=== PATIENT | female | born 1985 | race Caucasian/White ===

== ENCOUNTER 2017-08-06 10:57 | Emergency (ER) | END 2017-08-06 13:59 | disposition home or self-care (01) ==

== ENCOUNTER 2017-08-13 16:29 | Emergency (ER) | END 2017-08-13 19:25 | disposition home or self-care (01) ==

== ENCOUNTER 2018-08-18 12:15 | Emergency (ER) | payer MEDICAID ==
[~2018-08-18] VITALS: Ht 162.6 cm; Wt 78.2 kg
[~2018-08-18 12:15] MED LIST: CEPH-443 PO; HYDR25TA6 PO; IBUP-1561 PO; ONDA4TAB14 PO; PREN1TAB49
[2018-08-18 12:23] VITALS: Ht 162.6 cm; Wt 78.2 kg
--- NOTE | 2018-08-18 15:02 | ERD ---
ER Documentation Chief Complaint Chief Complaint DIZZINESS AND NUMBESS OF THE ARMS X 1 WEEK HPI 83-year-old female, previously healthy, presents the emergency department, complaining of 1 week with intermittent episodes of dizziness, described as a spinning sensation, worsened by changes in position, associated with nausea and bilateral ear ringing. The patient reports approximately one episode per day, she denies headache, no blurred vision, no distal weakness, however, the patient reports numbness of the fingers. Otherwise, no fever, no chills, no rashes, no abdominal pain. ROS All systems reviewed and are negative except as per history of present illness. Medications Home Meds Active Scripts Ondansetron Hcl* (Zofran*) 4 Mg Tablet, 4 MG PO Q8H PRN for NAUSEA AND/OR VOMITING, #20 TAB Prov:KARINA PUENTE MD 08/18/18 Meclizine Hcl* (Antivert*) 12.5 Mg Tab, 12.5 MG PO Q6H PRN for DIZZINESS, #20 TAB Prov:KARINA PUENTE MD 08/18/18 Ondansetron (Ondansetron Odt) 4 Mg Tab.rapdis, 4 MG PO Q6H PRN for NAUSEA AND/OR VOMITING, #20 TAB Prov:NEVILLE HOU PA-C 08/13/17 Ibuprofen* (Motrin*) 400 Mg Tab, 400 MG PO Q6H PRN for PAIN AND OR ELEVATED TEMP, #30 TAB Prov:NEVILLE HOU PA-C 08/13/17 Cephalexin* (Keflex*) 500 Mg Capsule, 500 MG PO TID for 7 Days, CAP Prov:NEVILLE HOU PA-C 08/13/17 Hydrochlorothiazide* (Hydrochlorothiazide*) 25 Mg Tab, 25 MG PO DAILY, #30 TAB Prov:FERNANDEZ CHRISTIAN PA-C 08/06/17 Reported Medications Vits W-Ca,Fe,Fa(<1MG) () 1 Tab Tablet, DAILY 04/12/11 Allergies Allergies: Coded Allergies: No Known Allergy (Verified Allergy, Mild, 05/25/06) PMhx/Soc History of Surgery: No Hx Neurological Disorder: No Hx Respiratory Disorders: No Hx Cardiac Disorders: Yes (htn) Hx Psychiatric Problems: No Hx Miscellaneous Medical Probl: No Hx Alcohol Use: No Hx Substance Use: No Hx Tobacco Use: No FmHx Family History: diabetes; No coronary disease Physical Exam Vitals Vital Signs Date Temp Pulse Resp B/P (MAP) Pulse Ox O2 O2 Flow FiO2 Time Delivery Rate 08/18/18 98.4 89 20 129/78 99 Room Air 16:38 (95) 08/18/18 98.9 100 20 146/91 99 12:23 (109) Physical Exam Patient is in no acute distress, vital signs stable. Alert and fully oriented. HEENT: PERRLA, EOMI, Sclera and conjunctiva appear normal, Canals clear, tympanic membranes WNL. THROAT: Normal oropharynx. NECK: Supple, No lymphadenopathy. Full ROM without pain or tenderness. HEART: RRR, no rubs, murmurs, clicks or gallops. LUNGS: Clear to auscultation. ABDOMEN: Soft, non-tender without masses or hepatosplenomegaly. EXTREMITIES: No edema bilaterally. BACK: Full ROM, no deformity, normal back exam NEURO: Cranial nerves grossly intact, no motor or sensory deficit. Mild horizontal nystagmus while the patient was looking straight ahead with mildly abnormal head impulse test. Result Diagram: 08/18/18 1519 08/18/18 1519 Results 24 hrs Laboratory Tests Test 08/18/18 15:19 08/18/18 15:23 White Blood Count 11.8 10^3/ul Red Blood Count 5.11 10^6/ul Hemoglobin 15.4 g/dl Hematocrit 45.4 % Mean Corpuscular Volume 88.8 fl Mean Corpuscular Hemoglobin 30.1 pg Mean Corpuscular Hemoglobin Concent 33.9 g/dl Red Cell Distribution Width 12.1 % Platelet Count 257 10^3/UL Mean Platelet Volume 12.1 fl Immature Granulocytes % 0.300 % Neutrophils % 67.2 % Lymphocytes % 24.7 % Monocytes % 7.0 % Eosinophils % 0.5 % Basophils % 0.3 % Nucleated Red Blood Cells % 0.0 /100WBC Immature Granulocytes # 0.030 10^3/ul Neutrophils # 7.9 10^3/ul Lymphocytes # 2.9 10^3/ul Monocytes # 0.8 10^3/ul Eosinophils # 0.1 10^3/ul Basophils # 0.0 10^3/ul Nucleated Red Blood Cells # 0.0 10^3/ul Sodium Level 139 mmol/L Potassium Level 3.8 mmol/L Chloride Level 100 mmol/L Carbon Dioxide Level 26 mmol/L Anion Gap 13 Blood Urea Nitrogen 9 mg/dl Creatinine 0.58 mg/dl Est Glomerular Filtrat Rate mL/min > 60 mL/min Glucose Level 81 mg/dl Calcium Level 10.3 mg/dl Total Bilirubin 0.9 mg/dl Direct Bilirubin 0.00 mg/dl Indirect Bilirubin 0.9 mg/dl Aspartate Amino Transf (AST/SGOT) 24 IU/L Alanine Aminotransferase (ALT/SGPT) 34 IU/L Alkaline Phosphatase 86 IU/L Total Protein 8.7 g/dl Albumin 5.0 g/dl Globulin 3.70 g/dl Albumin/Globulin Ratio 1.35 Urine Color STRAW Urine Clarity SLIGHTLY CLOUDY Urine pH 8.0 Urine Specific [place] 1.003 Urine Ketones 1+ mg/dL Urine Nitrite NEGATIVE mg/dL Urine Bilirubin NEGATIVE mg/dL Urine Urobilinogen NEGATIVE mg/dL Urine Leukocyte Esterase NEGATIVE Amanda/ul Urine Microscopic RBC 5 /HPF Urine Microscopic WBC 1 /HPF Urine Squamous Epithelial Cells FEW /HPF Urine Bacteria FEW /HPF Urine Hemoglobin 1+ mg/dL Urine Glucose NEGATIVE mg/dL Urine Total Protein NEGATIVE mg/dl EKG read by me: Rate/Rhythm: Regular rate and rhythm at a rate of 103 Intervals: Normal No acute ST changes. No T wave inversion Impression: No evidence of acute ischemia or arrhythmia Patient: MEL VILLAVICENCIO : 1985 Age: 33 Sex: F [id number] DOS: 08/18/18 [facility]9 Ordering MD: KARINA PUENTE MD Location: [facility] Room/Bed: PROCEDURE: CT Brain without contrast. CLINICAL INDICATION: Dizziness, paresthesia. TECHNIQUE: A CT of the brain without contrast was performed utilizing axial sections from the skull base through the vertex. One or more the following does reduction techniques were utilized: Automated exposure control, adjustment of the mA/ or kV according to patient's size, or use of iterative reconstruction technique. Total exam CTDIvol is 40 MGy and DLP is 634 mGy-cm. DICOM images are available. COMPARISON: None available. FINDINGS: The ventricles and sulci are age-appropriate. There is no intracranial hemorrhage, mass effect or midline shift. No abnormal intra-axial or extra- axial fluid collections are seen. The nelson/white matter differentiation is preserved. No acute skull abnormality is noted. The visualized paranasal sinuses demonstrate minimal mucoid secretion in the left sphenoid sinus. The mastoid air cells are essentially clear. IMPRESSION: 1. No acute intracranial hemorrhage, transcortical infarction or mass effect. RPTAT: UU Procedures/MDM Vital signs stable, neurovascular exam revealed horizontal nystagmus while the patient was looking straight ahead with mildly abnormal head impulse test. Differential diagnosis include but not limited to dehydration, cardiac arrhythmia, , Mnire's disease, vestibular neuronitis, migraine, vertigo, side effects of the medications, hypoglycemia. Less likely but is still a possibility, intracranial hemorrhage, ischemic stroke, [employer] neoplasm. Pertinent Data: 12 Lead ECG: Sinus rhythm, no ST changes, normal T wave, normal intervals Labs: CBC: normal, BMP: normal kidney function, normal electrolytes. Glucose: normal Urine : Negative. CT head: Normal Physical examination and clinical presentation consistent most likely with positional vertigo During the ED course the patient remained stable, no new complaints. Results and clinical impression discussed with patient who agrees with management. The patient is stable to be treated outpatient and will be discharged home with instructions to follow up with the primary care provider in the next 48h. If symptoms persist, worsen or new symptoms develop, then patient should return to the ED immediately. Instructions explained and given directly by me to the patient with acknowledgment and demonstrated understanding. Disclaimer: Inadvertent spelling and grammatical errors are likely due to EHR/dictation software use and do not reflect on the overall quality of patient care. Also, please note that the electronic time recorded on this note does not necessarily reflect the actual time of the patient encounter. Departure Diagnosis: Primary Impression: Dizziness Additional Impression: Positional vertigo Condition: Stable Patient Instructions: Dizziness (Vertigo) and Balance Problems: Ensuring Your Safety Additional Instructions: Muchas sinai por [facility] para banda servicio. Esperamos que en banda visita a la rudy de emergencia banda problema medico haya sido solucionado y que se sienta mucho mejor. Para estar seguros que banda mejoria sigue en proceso, le pedimos el favor de hacer jamel ministerio de seguimiento medico con banda doctor primario en los proximos 2-4 delvalle. Lleve con usted estos documentos y las medicinas recetadas. Si amelie sintomas empeoran, NO SE ESPERE, por favor regrese a rudy de emergencia INMEDIATAMENTE. En tasneem que usted no tenga un mdico de atencin primaria: Llame al mdico o clnica comunitaria de referencia que aparece abajo eugenia las horas de consultorio para hacer jamel ministerio para que le vean. CLINICAS: [facility] [phone] [phone] [facility] [phone] [facility] [phone] [facility] [phone] [id number] [facility] [phone] KARINA HERNANDEZ MD Aug 18, 2018 15:02
[2018-08-18] MEDS ORDERED: ONDA4TAB8 PO (16:26)
[2018-08-18] MEDS ORDERED: MECL12.574 PO (16:26)
[2018-08-18 16:38] VITALS: BP 129/78; PULSE 89; RESP 20
== END 2018-08-18 16:42 | disposition home or self-care (01) ==
LOC: FTE 12:15
DX: R42 Dizziness and giddiness (principal); I10 Essential (primary) hypertension
CPT/HCPCS: 36415; 70450; 80053; 81001; 85025; 93005; Z7502